=== PATIENT | male | born 1960 | race Caucasian/White ===

== ENCOUNTER 2021-06-20 13:24 | Outpatient (CLI) | payer OTHER, SELFPAY ==
--- NOTE | ~2021-06-20 | XR_ITS ---
EXAMINATION: XR abdomen/kub 1V DATE: 06/20/2021 13:47 INDICATION: Bilateral calcified kidney stone. TECHNIQUE: A supine view of the abdomen on 3 radiographs was obtained. COMPARISON: None. FINDINGS: There are no dilated loops of bowel. A vascular stent overlies the abdomen. There are multi ple stones in right kidney measuring up to 3 mm. There are multiple stones in left kidney measuring u p to 6 mm. IMPRESSION: 1. Bilateral kidney stones. Reviewed, dictated and finalized at location A. AL HURRICANE HUNTER IMPRESSION: 1. Bilateral kidney stones.
== END 2021-06-20 13:25 | disposition home or self-care (01) ==
LOC: ANHIMG 13:34
PROVIDERS: PCP Internal Medicine; Visit Provider Urology
DX: N20.0 Calculus of kidney (principal)
CPT/HCPCS: 74018

== ENCOUNTER 2022-03-14 13:16 | Outpatient (CLI) | payer OTHER, SELFPAY ==
--- NOTE | ~2022-03-14 | XR_ITS ---
EXAM: XR abdomen/kub 1V DATE: 03/14/2022 13:32 HISTORY: CALCIUM KIDNEY STONE . COMPARISON: 06/20/2021. FINDINGS: Left iliac stent. Surgical clips over the left pelvis. Normal bowel gas pattern. No organo megaly. Bilateral renal calcifications, similar in number and location. Degenerative lumbar disc dise ase with bridging osteophytes. IMPRESSION: Stable bilateral nephrolithiasis. . Reviewed, dictated and finalized at location K.
--- NOTE | ~2022-03-14 | CT_ITS ---
EXAMINATION: CT abdomen pelvis wo con DATE: 03/14/2022 13:37 INDICATION: Bilateral flank pain. Calcium kidney stone. TECHNIQUE: Computed tomography (CT) of the abdomen and pelvis was performed without intravenous contr ast. Automated exposure control and iterative reconstruction technique were employed. The dose-length product was 268.79 mGy-cm. COMPARISON: None. FINDINGS: The visualized portions of the lung bases demonstrate mild atelectasis. No pleural effusion . The heart size is normal. No pericardial effusion. The liver, gallbladder, spleen, pancreas, and ad renal glands are normal. There are 7 stones in right kidney measuring up to 4 mm. There are 4 stones in left kidney measuring up to 4 mm. The prostate is moderately enlarged. There are no dilated loops of bowel. The appendix is normal. There is an umbilical hernia containing fat. There are no pathologi neptali enlarged lymph nodes. There is no free intraperitoneal fluid. There is a stent in left common i liac vein. There is moderate lumbar spondylosis. There is mild chronic anterior wedging of multiple t horacic vertebral bodies. IMPRESSION: 1. Bilateral nonobstructing kidney stones. Reviewed, dictated and finalized at location A.
== END 2022-03-14 13:17 | disposition home or self-care (01) ==
PROVIDERS: PCP Internal Medicine; Visit Provider Urology
DX: N20.0 Calculus of kidney (principal)
CPT/HCPCS: 74018; 74176

== ENCOUNTER 2022-04-04 09:05 | Outpatient (CLI) | payer OTHER, SELFPAY ==
--- NOTE | 2022-04-04 09:38 | ECG_ITS ---
Measurements Intervals [place] Rate: 96 P: 42 MD: 146 QRS: 34 QRSD: 109 T: 26 QT: 350 QTc: 444 Interpretive Statements SINUS RHYTHM BORDERLINE ST-T WAVE ABNORMALITY- INFERIOR LEADS BASELINE ARTIFACT- I, II, III, AVR, AVL, AVF BORDERLINE ECG NO PREVIOUS ECG AVAILABLE FOR COMPARISON Electronically Signed On 04-04-2022 11:57:58 [employer]THLETIC INSTRU[employer] by Jaden Lang D.O.
[2022-04-04 10:13] LABS: Prothrombin Time 13.2 Seconds (11.1-14.7)
[2022-04-04 10:14] LABS: Partial Thromboplastin Time 26.4 SECONDS (22.3-36.8)
== END 2022-04-04 09:06 | disposition home or self-care (01) ==
LOC: ANHSURGERY 09:08
PROVIDERS: PCP Internal Medicine; Visit Provider Urology
DX: Z01.818 Encounter for other preprocedural examination (principal); N20.0 Calculus of kidney; I10 Essential (primary) hypertension
CPT/HCPCS: 36415; 85610; 85730; 87086; 93005

== ENCOUNTER 2022-04-13 01:35 | Day surgery (SDC) | payer OTHER, SELFPAY ==
[2022-04-02 15:39] VITALS: BMI 28.3
--- NOTE | 2022-04-02 15:45 | PC.NURSE ---
Addendum entered by Cortney Villavicencio RN 04/02/22 15:53: PT TO CONFIRM PLAVIX STOP DATE WITH DR. GUSTAFSON/OFFICE. Original Note: Report to the Outpatient Waiting Room, entrance under the green pavilion located off [facility], at time 7:30 on date 04/13/22. Planned Procedure Time: 9:30. Time changes happen often and if your time is changed the preop area will call you the afternoon before. - You and your visitor will be asked to self-screen and do not enter if you have any COVID symptoms. - Only one visitor is requested with a max of two and NO children visitors are allowed at this time. - The patient visitor may be requested to leave or wait in car when not with patient due to distancing restrictions. - A mask is optional within the hospital. Patients may have clear liquids (water, carbonated beverages, clear teas, apple juice) until 3 hours prior to surgery (6:30) with a maximum of 20 ounces. - No food from midnight until time of surgery Take the following medications with a SIP of water the morning of surgery: AMLODIPINE, LEVOTHYROXINE Medications to discontinue per physician: N/A Date to take last dose: N/A Please no make-up, nail azerbaijani, hairspray, perfume, deodorant, or body powder the day of surgery. No jewelry (including any body piercings) or valuables the day of surgery, leave them at home. Please take a shower or bath the night before, or the morning of, surgery with an antibacterial soap. Wear comfortable, loose fitting clothing. - Jewelry must be removed prior to entering the operating room. Rings and piercings that are not removed may be cut off. - The hospital will not accept responsibility for valuables. - Please leave all valuables, including medications, at home the day of surgery. If you are going home after surgery, a licensed pickup driver must drive you home. - NO public transportation without another adult if you receive anesthesia. - We recommend that an adult stay with you for 24 hours following discharge. - We also recommend that you do not drive, make important decision, drink alcoholic beverages, or take any drugs that were not prescribed by your health care provider for at least 24 hours after your discharge time. Follow any additional instructions given to you from your surgeon. If you or anyone in your household have experienced Covid symptoms in the past week, please notify your surgeon or the nurse liaison at the phone number below for possible testing. Telephone instructions given to GABRIEL LOMBARDI and asked if any additional questions and then verbalized understanding. Patient advised to call surgeon office or pre surgery nurse liaison [phone] if any additional questions.
--- NOTE | 2022-04-03 07:37 | P.HP_ITS ---
History of Present Illness History of Present Illness Consent: Risks, benefits, and alternatives have been discussed and questions answered. Patient agrees to proceed with procedure. Chief complaint: kidney stones Narrative: Rohit Griffin is a 62 year old male with a remote history of urolithiasis who is followed by Dr. Adams for hypogonadism and erectile dysfunction. Recent follow-up imaging demonstrated several bilateral renal stones measuring up to 4 mm. After discussion of options he has elected for right ESWL. He is aware of the risk including, but not limited to, residual fragments that were a require additional intervention, postoperative hematuria and perinephric hematoma Review of Systems Review of Systems: All systems reviewed & are unremarkable except as noted in HPI and below PMFSH Social History Social History Smoking status: Never smoker Alcohol intake: current Drinks per week: 10 Substance use: never Substance use type: does not use Spiritual care concerns: No Meds Home Medications and Allergies Home Medications Medication Instructions Recorded Confirmed Type allopurinol 300 mg tablet 300 mg PO DAILY 04/02/22 04/02/22 History amlodipine 10 mg tablet 10 mg PO DAILY 04/02/22 04/02/22 History clopidogrel 75 mg tablet 75 mg PO DAILY 04/02/22 04/02/22 History levothyroxine 150 mcg tablet 150 mcg PO DAILY 04/02/22 04/02/22 History omeprazole 20 mg capsule,delayed 20 mg PO DAILY 04/02/22 04/02/22 History release testosterone undecanoate 237 mg 237 mg PO BID 04/02/22 04/02/22 History capsule (Jatenzo) Allergies Allergy/AdvReac Type Severity Reaction Status Date / Time morphine AdvReac Vomiting Verified 04/02/22 15:36 Exam Const: General: no acute distress Resp: Effort & Inspection: normal respiratory effort GI: Inspection: non-distended GI Palp: No abdominal tenderness and No Guarding due to palpation present (GI) Auscultation: normal bowel sounds Assessment and Plan Assessment and plan (1) Bilateral renal stones: Code(s): N20.0 - Calculus of kidney Status: Acute Assessment and Plan: * Right ESWL
[2022-04-13] VITALS (8 sets, daily range): BP systolic 137–155; BP diastolic 78–90; PULSE 70–86; RESP 12–16; TEMP 36.9–37; O2SAT 93–98
--- NOTE | ~2022-04-13 | XR_ITS ---
EXAMINATION: XR abdomen/kub 1V DATE: 04/13/2022 08:06 INDICATION: Kidney stone. TECHNIQUE: A supine view of the abdomen on 2 radiographs was obtained. COMPARISON: CT abdomen and pelvis 03/14/2022 FINDINGS: There are no dilated loops of bowel. There is a stent in left common iliac vein. There are approximately 6 stones in right kidney measuring up to 4 mm. There are approximately 5 stones in left kidney measuring up to 3 mm. There is a phlebolith in the pelvis. IMPRESSION: 1. Bilateral kidney stones. Reviewed, dictated and finalized at location A. K SAWYER IMPRESSION: 1. Bilateral kidney stones.
--- NOTE | 2022-04-13 06:45 | WPDHPUPDATE1 ---
History and Physical Update Update Date/Time: 04/13/22 06:45 History and Physical has been reviewed, including an updated exam of the patient. There are NO changes in the patient's condition. Risks, benefits, and alternatives have been discussed and questions answered. Patient agrees to proceed with procedure.
[2022-04-13] MEDS: LACTATED RINGERS 1,000 ML 30 ML IV CONT (08:30)
--- NOTE | 2022-04-13 08:32 | WPDANESEPPF ---
Anes - Initial Pre Proc Eval Procedure: Operation Date: 04/13/22 09:30 Proposed Procedures p Right Extracorporeal Shock Wave Lithotripsy - Keith Alcantara MD Date/Time: 04/13/22 08:32 Surgeon: Keith Alcantara MD Pre Op Diagnosis: kidney stones Patient Data Age: 62 Gender: M Height: 1.79 m Weight: 90.72 kg Allergies Allergy/AdvReac Type Severity Reaction Status Date / Time morphine AdvReac Vomiting Verified 04/02/22 15:36 Home Medications Medication Instructions Recorded Confirmed Type allopurinol 300 mg tablet 300 mg PO DAILY 04/02/22 04/02/22 History amlodipine 10 mg tablet 10 mg PO DAILY 04/02/22 04/02/22 History clopidogrel 75 mg tablet 75 mg PO DAILY 04/02/22 04/02/22 History levothyroxine 150 mcg tablet 150 mcg PO DAILY 04/02/22 04/02/22 History omeprazole 20 mg capsule,delayed 20 mg PO DAILY 04/02/22 04/02/22 History release testosterone undecanoate 237 mg 237 mg PO BID 04/02/22 04/02/22 History capsule (Jatenzo) Patient hx anesthesia problems: none Family hx anesthesia problems: none Results Review: All pre-operative results and documents have been reviewed as part of the pre-operative evaluation. [facility] Social History Social History Smoking status: Never smoker Alcohol intake: current Drinks per week: 10 Substance use: never Substance use type: does not use Living arrangements: with family Spiritual care concerns: No Anes - Eval Final PreProcedure Day of Procedure 04/13/22 08:32 Patient weight: overweight Heart: regular rate and rhythm Lungs: clear to auscultation Airway: Mallampati scale class III Neurological: alert and oriented Last oral intake: >/= 8 hours ASA classification: III Emergent: no Anesthetic plan: proceed Anesthesia type and monitoring: general LMA and standard monitoring Results Review: All pre-operative results and documents have been reviewed as part of the pre-operative evaluation. Informed Consent: The patient's anesthetic plan and its attendant risks and benefits were discussed with the patient/family/POA. Questions were solicited and answers provided to the satisfaction of the patient/family/POA.
[2022-04-13] MEDS: ceFAZolin 2 GM/D5W 50 ML 2 GM/50 ML BAG IVPB (08:53)
--- NOTE | 2022-04-13 09:12 | W.PM.PROC2 ---
Procedure Note - Detailed Date of Procedure 04/13/22 Pre-op Diagnosis Right kidney stones Post-op Diagnosis Same Procedure Performed Right ESWL Surgeon Keith Alcantara MD Anesthesia General Description of Procedure The patient was brought to the operative suite where he was placed in the supine position on the Dornier lithotripsy table. The focal point of the lithotripter was placed at a couple of contiguous stones in right kidney. A total of 2500 shocks were delivered at a power setting of 4. There appeared to be good fragmentation of the stone. The patient tolerated the procedure well and was taken to the recovery room in good condition. Drains No Packing No Pathology None sent Complications No immediate complications Condition Stable Disposition PACU
== END 2022-04-13 11:05 | disposition home or self-care (01) ==
PROVIDERS: PCP Internal Medicine; Visit Provider Urology
PROC: (CPT 50590; principal; 2022-04-13 09:30)
DX: N20.0 Calculus of kidney (principal); Z79.02 Long term (current) use of antithrombotics/antiplatelets
CPT/HCPCS: 50590; 36415; 74018; 85610; 85730; 87086; 93005; J0690; J1100; J2250; J2405; J2704; J3010; J7120

== ENCOUNTER → 2022-05-22 12:39 | Outpatient (CLI) | payer OTHER, SELFPAY ==
--- NOTE | ~2022-05-22 | XR_ITS ---
EXAMINATION: XR abdomen/kub 1V DATE: 05/22/2022 14:32 INDICATION: Calculus of kidney. TECHNIQUE: A supine view of the abdomen on 2 radiographs was obtained. COMPARISON: CT abdomen and pelvis 03/14/2022 FINDINGS: There are no dilated loops of bowel. There is a stent in left common iliac vein. There are least 3 stones in left kidney measuring up to 4 mm. 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 IMPRESSION: 1. Left kidney stones. Reviewed, dictated and finalized at location A. ULA WEIGHER IMPRESSION: 1. Left kidney stones.
== END ==
PROVIDERS: PCP Internal Medicine; Visit Provider Urology
DX: N20.0 Calculus of kidney (principal)
CPT/HCPCS: 74018

== ENCOUNTER 2023-06-13 09:35 | Outpatient (CLI) | payer OTHER, SELFPAY ==
--- NOTE | ~2023-06-13 | XR_ITS ---
XR abdomen/kub 1V DATE: 06/13/2023 09:55 INDICATION: Calcium kidney stone follow-up. Right flank pain. TECHNIQUE: 2 supine AP views 05/22/2022 COMPARISON: KUB 03/14/2022 CT abdomen pelvis FINDINGS: Left common iliac vein stent is again noted. Subtle bilateral calcified kidney stones are noted, better demonstrated on the left due to less inter ference than on the right side from the colon gas bowel content. At least one faintly calcified right renal stone is noted. Numerous left small renal calcified calculi. No calcified calculi are noted overlying the expected position of the ureters. The psoas shadows are intact. No visceromegaly is noted. There is a moderately prominent of fecal mat erial in the rectum and colon but no apparent bowel obstruction. Degenerative spurring of the thoracic and lumbar spine. IMPRESSION: Bilateral nephrolithiasis Reviewed, dictated and finalized at Location A. Reviewed, dictated and finalized at location L. BALL GLOVE STUFFER IMPRESSION: Bilateral nephrolithiasis
== END 2023-06-13 09:36 | disposition home or self-care (01) ==
LOC: ANHIMG 09:37
PROVIDERS: PCP Internal Medicine; Visit Provider Urology
DX: N20.0 Calculus of kidney (principal)
CPT/HCPCS: 74018